=== PATIENT | male | born 1965 | race Asian ===

== ENCOUNTER → 2019-09-30 | Emergency (ER) | payer OTHER ==
[~2019-09-30] MED LIST: ACETAMINOPHEN 1000 MG/100 ML VIAL (NON FORMULARY) IVPB ONE; ACETAMINOPHEN INJECTION 100 ML IVPB ONE; CALCIUM GLUCONATE 10% - 1,000 MG/10 ML VIAL IVPUSH ONE; CALCIUM GLUCONATE 10% - 1,000 MG/10 ML VIAL ONE; INSULIN REGULAR 100 UNITS in SODIUM CHLORIDE 99 ML IVPB SCH; SODIUM BICARBONATE 8.4% 50 MEQ/50 ML DISP.SYRIN IVPUSH ONE; SODIUM CHLORIDE 0.9% 1000 ML INFUS.BAG IV ONE; dilTIAZem HCL 50 MG/10 ML - 10 ML VIAL IVPUSH ONE; dilTIAZem HCL 50 MG/10 ML - 10 ML VIAL ONE
--- NOTE | 2019-09-30 13:01 | PDOC ---
History of Present Illness - General Chief Complaint: Nausea/Vomiting Stated Complaint: NAUSEA/VOMITING, BILAT BACK PAIN Time Seen by Provider: 09/30/19 13:00 - History of Present Illness Initial Comments: 09/30/19 13:41 54yo male with hx of gastritis, schizophrenia, and dm on depakote, metformin, bentropine, klonopin, and olanzapine presents for eval of abd pain, back pain, freq urination, elevated glu, and sob. Pt states he feels thirsty. Pt states he hasn't eaten or drank any liquid x 3 days. Pt states he feels his heart racing. Pt tachypnic, tachy. Pt denies f/c. Admits to n/v. No diarrhea. Pt states he is normally treated at [facility] in [place], but lives in [place]. Pt denies dysuria. Pt denies cp. Pt arrives in afib w rvr at 170s. states he has had irreg rhythms before when he his glucose and dm was "out of wack". Pt denies all other complaints. Past History - Past Medical History Allergies/Adverse Reactions: Allergies Allergy/AdvReac Type Severity Reaction Status Date / Time No Known Allergies Allergy Verified 09/30/19 13:31 Review of Systems - Review of Systems Able to Perform ROS?: Yes Is the patient limited Citizen [place] proficient: No Constitutional: Yes: Weakness. No: Chills, Fever HEENTM: Yes: Other (dry mouth). No: Eye Pain, Nose Pain, Throat Pain Respiratory: Yes: Shortness of Breath. No: Cough Cardiac (ROS): Yes: Irregular Heart Rate, Lightheadedness, Palpitations. No: Chest Pain ABD/GI: Yes: Nausea, Vomiting, Other (abdominal pain). No: Diarrhea : Yes: Frequency. No: Burning, Dysuria Musculoskeletal: Yes: Back Pain Integumentary: Yes: Bruising. No: Rash Neurological: No: Headache, Numbness, Paresthesia, Ataxia All Other Systems: Reviewed and Negative *Physical Exam - Vital Signs 09/30/19 13:45 Selected Entries 09/30/19 09/30/19 12:58 13:31 Temperature 96.3 F L Pulse Rate 95 H Pulse Rate [ 164 H Apical] Respiratory 28 H Rate Blood Pressure 117/82 Blood Pressure 133/76 [Left Arm] Blood Pressure 93 Mean Blood Pressure Supine Position [Left Arm] O2 Sat by Pulse 100 Oximetry (%) Weight 61.235 kg - Physical Exam General Appearance: Yes: Apparent Distress, Severe Distress, Thin HEENT: positive: EOMI, Other (dry cracked tongue and lips). negative: Rhinorrhea Neck: positive: Supple Respiratory/Chest: positive: Lungs Clear, Respiratory Distress, Labored Respiration, Rapid RR Cardiovascular: positive: Tachycardia, Irregularly Irregular Gastrointestinal/Abdominal: positive: Soft, Tenderness (diffusely). negative: Guarding, Rebound Musculoskeletal: positive: Normal Inspection. negative: CVA Tenderness Extremity: positive: Normal Capillary Refill, Normal Inspection, Normal Range of Motion, Other (ambulated into the ER). negative: Swelling, Calf Tenderness Integumentary: positive: Pale Neurologic: positive: Fully Oriented, Alert, Normal Mood/Affect, Motor Strength 5/5 Heart Score/ECG Review - ECG Intrepretation Comment:: 09/30/19 13:46 afib w rvr at 169, l axis, q waves septally which are age indeterminate, st depression laterally, lvh, abnl ekg afib w rvr at 179, lafb, nl axis, lvh, st depression lateral leads, q waves septally which are age indeterminate, abnl ekg ED Treatment Course - LABORATORY CBC & Chemistry Diagram: 09/30/19 16:31 09/30/19 16:31 Medical Decision Making - Critical Care Time Total Critical Care Time (minutes): 90 Critical Care Statement: The care of this patient involved high complexity decision making to prevent further life threatening deterioration of the patient's condition and/or to evaluate & treat vital organ system(s) failure or risk of failure. - Medical Decision Making 09/30/19 13:51 a/p: 54yo male with hx of schizophrenia and dm with sob, tachycardia, abd pain -finger stick upon arrival is >600 -pt with abd pain, appears dehydrated -pt normally treated in -will start ivf hydration, cardizem for afib, labs, cultures -beta hydroxyburturate -pt will need admission 09/30/19 13:55 wbc 17 09/30/19 13:55 cxr clear 09/30/19 14:24 pt with glu 808 arf afib rvr hyperkalemia at 6.9 insulin gtt ordered family requesting transfer to [facility] 09/30/19 14:[address] Green at [facility] who accepts pt in transfer ph 6.88 calcium glu ordered for hyperkalemia repeat ekg ordered 09/30/19 15:00 beta hydroxy 145 lactate 5 ivf hydration running hr improved after cardizem and calcium glu repeat ekg: sinus at 85, l axis, nl interval, t wave inversions lateral leads, abnl ekg, hyperkalemic changes 09/30/19 15:15 pt accepted to the [place] [facility] by [facility] Dr. Green updated on labs, he recommends 3 amps bicarb 09/30/19 16:38 pt has been accepted to [place] [facility] by Dr. Yousif pending bed placement will repeat labs 09/30/19 17:51 pt assigned to bed 5 in ICU Discharge - Discharge Information Problems reviewed: Yes Clinical Impression/Diagnosis: Atrial fibrillation with rapid ventricular response, Acute renal failure, DKA (diabetic ketoacidoses), Hyperkalemia, Lactic acidemia Condition: Critical Disposition: TRANSFER ACUTE CARE/OTHER HOSP - Follow up/Referral - Patient Discharge Instructions - Post Discharge Activity - Transfer to Acute Care Facility Receiving Facility Name: [address] Accepting Physician:: Dr. Green/Dr. Yousif
[2019-09-30 13:10] VITALS: BMI 23.9
[2019-09-30 13:48] LABS: HEMATOCRIT 47.7 % (35.4-49); HEMOGLOBIN 15.6 GM/dl (11.7-16.9); MCH 31.9 pg (25.7-33.7); MCHC 32.6 g/dl (32.0-35.9); MEAN CELL VOLUME 97.8 fl (80-96); MEAN PLT VOLUME 12.1 fl (7.5-11.1); PLATELET COUNT 223 K/MM3 (134-434); RBC 4.88 M/mm3 (4.00-5.60); RDW 12.3 % (11.9-15.9); WHITE BLOOD COUNT 17.5 K/mm3 (4.0-10.8)
[2019-09-30 13:50] LABS: ACTIVATED PTT 22.3 SECONDS (25.2-36.5)
[2019-09-30 13:51] LABS: ALBUMIN 4.8 g/dl (3.4-5.0); BILIRUBIN,TOTAL 2.4 mg/dl (0.2-1); CALCIUM 8.8 mg/dl (8.5-10); CREATININE 2.8 mg/dl (0.55-1.3); MAGNESIUM 2.9 mg/dL (1.8-2.4); TOT PROT 8.3 g/dl (6.4-8.2)
[2019-09-30 13:54] LABS: INR 1.02 (0.82-1.09); PROTHROMBIN TIME (PATIENT) 11.4 SEC (10.2-13.0)
[2019-09-30 14:15] LABS: POTASSIUM 6.9 mmol/L (3.5-5.1)
[2019-09-30 14:30] LABS: VENOUS PH 6.88 (7.31-7.41); VENOUS PO2 < 49 mmHg (28-48)
[2019-09-30 15:06] LABS: PLATELET ESTIMATE ADEQUATE
[2019-09-30 15:11] LABS: EPITHELIAL CELLS RARE /hpf; URINE HYALINE CAST 0-2 /lpf
[2019-09-30 16:54] VITALS: TEMP 96.1
[2019-09-30 17:03] LABS: ALBUMIN 3.8 g/dl (3.4-5.0); BILIRUBIN,TOTAL 2.5 mg/dl (0.2-1); CALCIUM 7.7 mg/dl (8.5-10); CREATININE 2.2 mg/dl (0.55-1.3); TOT PROT 6.6 g/dl (6.4-8.2)
[2019-09-30 17:04] LABS: HEMATOCRIT 40.8 % (35.4-49); HEMOGLOBIN 13.7 GM/dl (11.7-16.9); MCH 32.1 pg (25.7-33.7); MCHC 33.5 g/dl (32.0-35.9); MEAN CELL VOLUME 95.8 fl (80-96); MEAN PLT VOLUME 11.2 fl (7.5-11.1); PLATELET COUNT 131 K/MM3 (134-434); RBC 4.26 M/mm3 (4.00-5.60); RDW 12.8 % (11.9-15.9); WHITE BLOOD COUNT 13.8 K/mm3 (4.0-10.8)
[2019-09-30 17:55] LABS: PLATELET ESTIMATE SLT DECREASE
[2019-09-30 18:47] VITALS: BP 124/88; PULSE 83
--- NOTE | 2019-10-01 11:15 | EKG ---
Test Reason : Blood Pressure : / mmHG Vent. Rate : 179 BPM Atrial Rate : 182 BPM P-R Int : 000 ms QRS Dur : 104 ms QT Int : 250 ms P-R-T Axes : 000 -55 102 degrees QTc Int : 431 ms ATRIAL FIBRILLATION WITH RAPID VENTRICULAR RESPONSE LEFT ANTERIOR FASCICULAR BLOCK MODERATE VOLTAGE CRITERIA FOR LVH, MAY BE NORMAL VARIANT CANNOT RULE OUT SEPTAL INFARCT (CITED ON OR BEFORE 30-SEP-2019) ABNORMAL ECG WHEN COMPARED WITH ECG OF 30-SEP-2019 13:11, ATRIAL FIBRILLATION HAS REPLACED SINUS RHYTHM Confirmed by MD DIANE, MACKENZIE ([id number]) on 10/01/2019 11:15:19 AM Referred By: DARLEEN DECKER Confirmed By:MACKENZIE CONTRERAS MD
--- NOTE | 2019-10-01 11:15 | EKG ---
Test Reason : Blood Pressure : / mmHG Vent. Rate : 085 BPM Atrial Rate : 085 BPM P-R Int : 172 ms QRS Dur : 108 ms QT Int : 376 ms P-R-T Axes : 006 -46 086 degrees QTc Int : 447 ms SINUS RHYTHM WITH PREMATURE SUPRAVENTRICULAR COMPLEXES LEFT AXIS DEVIATION POSSIBLE ANTEROSEPTAL INFARCT (CITED ON OR BEFORE 30-SEP-2019) ABNORMAL ECG WHEN COMPARED WITH ECG OF 30-SEP-2019 13:12, SINUS RHYTHM HAS REPLACED ATRIAL FIBRILLATION VENT. RATE HAS DECREASED BY 94 BPM SERIAL CHANGES OF EVOLVING ANTEROSEPTAL INFARCT PRESENT Confirmed by MD DIANE, MACKENZIE ([id number]) on 10/01/2019 11:15:08 AM Referred By: DARLEEN DECKER Confirmed By:MACKENZIE CONTRERAS MD
== END | disposition short-term general hospital (02) ==
LOC: FER 12:57
PROC: 3E0337Z Introduction of Electrolytic and Water Balance Substance into Peripheral Vein, Percutaneous Approach (ICD-10-PCS; principal; 2019-09-30)
DX: I48.91 Unspecified atrial fibrillation (principal); N19 Unspecified kidney failure; E11.10 Type 2 diabetes mellitus with ketoacidosis without coma; Z79.4 Long term (current) use of insulin; E87.5 Hyperkalemia
CPT/HCPCS: 36415; 71045-TC-FY; 80053; 81003; 81015; 82010; 82550; 82803; 82962; 83605; 83690; 83735; 84443; 84484; 85025; 85610; 85730; 87040; 87086; 93005; 99291; 99292; J0131; J7030